=== PATIENT | male | born 1955 | race Caucasian/White ===

== ENCOUNTER 2016-09-01 09:14 | Day surgery (SDC) | payer OTHER ==
--- NOTE | ~2016-09-01 | EGD ---
EGD REPORT [facility] [address] [place] [address] NAME: SMITH DE LUNA : [birth year] STATUS : REG [facility] PAT#: [id number] AGE: 61 ADM/REG DATE : 09/01/16 MR#: [id number] REPORT SERV DATE: 09/01/16 DICTATED BY: AUGUSTUS MORSE DATE: 09/01/16 REPORT STATUS : Draft [facility]: [facility] DATE: 09/01/16 Endoscopy Center Patient Name: Smith De Luna Date of : 1955 Attending MD: AUGUSTUS MORSE MD Procedure Date No Time: 09/01/2016 Procedure: Upper GI endoscopy Indications: Abdominal pain in the left upper quadrant, (CT neg) Referring MD: LEN TRAMMELL Medicines: See the Anesthesia note for documentation of the administered medications Complications: No immediate complications. Procedure: Pre-Anesthesia Assessment: - ASA Grade Assessment: III - A patient with severe systemic disease. After obtaining informed consent, the endoscope was passed under direct vision. Throughout the procedure, the patient's blood pressure, pulse, and oxygen saturations were monitored continuously. The GIF [id number] was introduced through the mouth, and advanced to the third part of duodenum. The upper GI endoscopy was accomplished without difficulty. The patient tolerated the procedure well. Findings: The examined duodenum was normal. Mild inflammation was found in the gastric antrum. Biopsies were taken with a cold forceps for histology. The cardia and gastric fundus were normal on retroflexion. A small hiatus hernia was present. Impression: - Normal examined duodenum. - Gastritis. Biopsied. - Hiatus hernia. Recommendation: - Patient has a contact number available for emergencies. The signs and symptoms of potential delayed complications were discussed with the patient. Return to normal activities tomorrow. Written discharge instructions were provided to the patient. - Regular diet. - Continue present medications. - Eat 1/2 size meals with small snack in between - FOR YOUR BIOPSY RESULTS: Please go to [email or web address] and register to receive your EGD REPORT [address] [id number] NAME: SMITH DE LUNA : [birth year] STATUS : REG [facility] PAT#: [id number] AGE: 61 ADM/REG DATE : 09/01/16 MR#: [id number] REPORT SERV DATE: 09/01/16 DICTATED BY: AUGUSTUS MORSE DATE: 09/01/16 REPORT STATUS : Draft TRANSCRIBED BY: Alexis Bittar DATE: 09/01/16 results via the portal. Your biopsy results will be posted there in about 7 to 10 days. IF you do not see result in 10 days, call office. - I am not seeing any GI cause for your degree of pain. Could be musculokeketal. See Dr Trammell re pain and also better blood glucose control. Call office to schedule mesenteric vascular ultrasound of abdominal vessels Office visit in 3 weeks Procedure Code(s): --- Professional --- 97443, Esophagogastroduodenoscopy, flexible, transoral; with biopsy, single or multiple Diagnosis Code(s): --- Professional --- K29.70, Gastritis, unspecified, without bleeding K44.9, Diaphragmatic hernia without obstruction or gangrene R10.12, Left upper quadrant pain CPT copyright 2013 [employer]. All rights reserved. The codes documented in this report are preliminary and upon strand and binder controller review may be revised to meet current compliance requirements. Augustus Morse MD AUGUSTUS MORSE MD 09/01/2016 10:55 AM This report has been signed electronically. Number of Addenda: 0 Note Initiated On: 09/01/2016 10:31 AM Scope Withdrawal Time 0 hours 0 minutes 0 seconds [address] [place] [address]
[~2016-09-01 09:14] MED LIST: APRES50 PO; ASAB PO; ASABAYER PO; AUG875 PO; CAT1 PO; COREG25 PO; COZAAR100 MG PO; CYMBALTA30 PO; HUMULIN R1 ML SC; LANTUS SC; LIPITOR20 PO; LIPITOR40 PO; LISINOPRIL40 MG PO; MAX25 PO; NITROSTAT0.4 MG SL; NORV5 PO; PLAVIX PO; PRILO PO; SYN112 PO; TESTOSTERONE INJ IM; X5 PO; ZANTAC300 MG PO
== END 2016-09-01 23:59 | disposition home or self-care (01) ==
LOC: DMU 09:14
PROVIDERS: Internal Medicine Gastroenterology
PROC: 0DB68ZX Excision of Stomach, Via Natural or Artificial Opening Endoscopic, Diagnostic (ICD-10-PCS; principal; 2016-09-01 11:00)
DX: K29.70 Gastritis, unspecified, without bleeding (principal); K44.9 Diaphragmatic hernia without obstruction or gangrene; I10 Essential (primary) hypertension; E78.00 Pure hypercholesterolemia, unspecified; E11.9 Type 2 diabetes mellitus without complications; E89.0 Postprocedural hypothyroidism; E03.9 Hypothyroidism, unspecified; I25.10 Atherosclerotic heart disease of native coronary artery without angina pectoris; Z95.5 Presence of coronary angioplasty implant and graft; Z98.890 Other specified postprocedural states; Z90.49 Acquired absence of other specified parts of digestive tract; Z87.442 Personal history of urinary calculi; Z85.850 Personal history of malignant neoplasm of thyroid; Z88.8 Allergy status to other drugs, medicaments and biological substances; Z90.89 Acquired absence of other organs; Z88.5 Allergy status to narcotic agent; Z79.899 Other long term (current) drug therapy; Z79.4 Long term (current) use of insulin; Z79.82 Long term (current) use of aspirin
CPT/HCPCS: 82962; 88305